=== PATIENT | female | born 1950 | race Two or more races ===

== ENCOUNTER 2019-03-16 06:26 | Day surgery (SDC) | payer BC, OTHER ==
--- NOTE | 2019-03-16 07:49 | PDANEPAE ---
ANE History of Present Illness EGD, US guided biopsy ANE Past Medical History - Cardiovascular History Hx Hypertension: No Hx Arrhythmias: No Hx Chest Pain: No Hx Coronary Artery / Peripheral Vascular Disease: No Hx CHF / Valvular Disease: No Hx Palpitations: No Cardiovascular History Comment: high chol - Pulmonary History Hx COPD: No Hx Asthma/Reactive Airway Disease: No Hx Recent Upper Respiratory Infection: No Hx Oxygen in Use at Home: No Hx Sleep Apnea: No Sleep Apnea Screening Result - Last Documented: Negative Pulmonary History Comment: recent PNA - Neurologic History Hx Cerebrovascular Accident: No Hx Seizures: No Hx Dementia: No - Endocrine History Hx Diabetes: No Hypothyroid: Yes Hyperthyroid: No Obesity: severe Endocrine History Comment: hypothyroidism - Renal History Hx Renal Disorders: Yes Renal History Comment: hx of left nephrectomy d/t ca. hx of partial right nephrectomy d/t ca - Liver History Hx Hepatic Disorders: No - Neurological & Psychiatric Hx Hx Neurological and Psychiatric Disorders: No - Cancer History Hx Cancer: Yes Cancer History Comment: kidney ca - Congenital Disorder History Hx Congenital Disorders: No - GI History GERD: no Hx Gastrointestinal Disorders: Yes Gastrointestinal History Comment: recent constipation - Other Health History Other Health History: wears glasses. lower partial plate. Anemia - Chronic Pain History Chronic Pain: No - Surgical History Prior Surgeries: 09/06/11 ventral hernia repair with Hernandez. 07/23/10 ventral hernia repair with Hernandez. 2004 partial right nephrectomy. 1997 left nephrectomy. hysterectomy. bridger JOHN Review of Systems Review of Systems: - Exercise capacity METS (RN): 4 METS ANE Patient History - Allergies Allergies/Adverse Reactions: No Known Allergies Allergy (Verified 03/15/19 17:33) - Home Medications Home Medications: Levothyroxine 03/15/19 [Last Taken Unknown] SIMVASTATIN HS 03/15/19 [Last Taken Unknown] - NPO status NPO Since - Liquids (Date): 03/15/19 NPO Since - Liquids (Time): 20:00 NPO Since - Solids (Date): 03/15/19 NPO Since - Solids (Time): 20:00 - Anes Hx Anes Hx: no prior problems - Smoking Hx Smoking Status: Never smoked Marijuana use: No - Alcohol Use Alcohol Use: None - Family Anes Hx Family Anes Hx: none Family Hx Anesthesia Complications: none ANE Labs/Vital Signs - Vital Signs Blood Pressure: 145/79 Heart Rate: 78 Respiratory Rate: 26 O2 Sat (%): 92 Height: 149.86 cm Weight: 93.894 kg ANE Physical Exam - Airway Neck exam: FROM Mallampati Score: Class 2 Mouth exam: normal dental/mouth exam (Upper front cap) - Pulmonary Pulmonary: clear to auscultation - Cardiovascular Cardiovascular: regular rate and rhythym - ASA Status ASA Status: III ANE Anesthesia Plan Anesthesia Plan: general endotracheal anesthesia
[2019-03-16] MEDS ORDERED: REMIFENTANIL HCL 1 MG VIAL ONE (07:52)
[2019-03-16] MEDS ORDERED: PROPOFOL 200 MG/20 ML VIAL ONE ×3 (07:52→09:15)
[2019-03-16] MEDS ORDERED: ROCURONIUM 50 MG/5 ML VIAL ONE (07:53)
[2019-03-16] MEDS ORDERED: DEXAMETHASONE 4 MG/ML VIAL ONE (07:53)
[2019-03-16] MEDS ORDERED: INDOMETHACIN 50 MG SUPP PR PRN (08:05)
--- NOTE | 2019-03-16 08:05 | PDGENHP ---
History & Physical Chief Complaint: abnl imaging History of Present Illness: 68 year old female presents for evaluation of abnormal imaging. She has a history of renal cell cancer and on imaging has a pancreatic mass. Pertinent Past, Social, Family History: PMHx: renal cell ca, hypothy. hypercholesterolemia. PSurghx: left nephrectomy, right partial nephr Relevant Physical Exam: HEENT: anicteric. CV: RRR +s1s2. Lungs: CTAB. Abd: soft, nt, + bs Cardiorespiratory Assessment: ASA 3
[2019-03-16] MEDS ORDERED: NS 500 ML IV SCH (08:15)
[2019-03-16] MEDS ORDERED: PHENYLEPHRINE HCL 100 MCG/ML SYR ONE (08:21)
[2019-03-16] MEDS ORDERED: ONDANSETRON 4 MG/2 ML VIAL ONE (08:41)
[2019-03-16] MEDS ORDERED: ePHEDrine SULFATE 25 MG/5 ML SYR ONE (09:01)
[2019-03-16] MEDS ORDERED: SUGAMMADEX SODIUM 200 MG/2 ML VIAL IVP ONE (09:22)
[2019-03-16] MEDS ORDERED: NALOXONE HCL 0.4 MG/ML INJ IVP PRN (09:38)
--- NOTE | 2019-03-16 09:49 | GIREPORT ---
[facility] Surgical Services - Endoscopy Department Patient Name: Aliyah Vyas Procedure Date: 03/16/2019 7:31 AM Patient Type: Outpatient Attending MD/ ER Physician: Robert Anne MD Procedure: Upper EUS Indications: Suspected mass in pancreas on CT scan Patient Profile: 68 year old female with a history of renal cell cancer presents for evaluation of a pancreatic mass seen on imaging. Providers: Robert Anne MD Medicines: General Anesthesia Complications: No immediate complications. Estimated blood loss: Minimal. Description of Procedure: After obtaining informed consent, the endoscope was passed under direct vision. Throughout the procedure, the patient's blood pressure, pulse, and oxygen saturations were monitored continuously. The Endoscope was intro duced through the mouth, and advanced to the second part of duodenum. The Endosonoscope was introduced through the mouth, and advanced to the sec ond part of duodenum. The esophagus, stomach, and duodenum were visualized endosonographically. The upper EUS was accomplished without difficulty. The patient tolerated the procedure well. Findings: ENDOSCOPIC FINDING: : The examined esophagus was normal. Localized nodular mucosa was found in the gastric antrum. Biopsies were taken with a cold forceps for histology. The examined duodenum was normal. ENDOSONOGRAPHIC FINDING: : There was no sign of significant endosonographic abnormality in the visualized portion of the liver. No masses were identified. There was no sign of significant endosonographic abnormality in the com mon bile duct. No lymphadenopathy seen. An irregular mass was identified in the pancreatic body. The mass was hypoechoic. The mass measured 38 mm by 40 mm in maximal cross-sectional diameter. The endosonographic borders were poorly-defined. There was sonographic evidence suggesting invasion into the splenic artery (manif ested by encasement). The mass was also very close to the celiac artery Fine needle aspiration for cytology was performed. Color Doppler imaging was utilized prior to needle puncture to confirm a lack of significant vasc ular structures within the needle path. One pass was made with the 25 gauge and another with a 19 gauge needle using a transgastric approach. A stylet was used. A science job titles was present and performed a preliminary cytologic examination. Fine needle biopsy was performed. Color Doppler imaging wa s utilized prior to needle puncture to confirm a lack of significant vasc ular structures within the needle path. Three passes were made with the 22 g auge ultrasound biopsy needle using a transgastric approach. A visible core of tissue was obtained. One pass was placed directyl into flow cytometry. Estimated Blood Loss: Estimated blood loss was minimal. Post Op Diagnosis: - Normal esophagus. - Nodular mucosa in the gastric antrum. Biopsied. - Normal examined duodenum. - There was no evidence of significant pathology in the visualized port ion of the liver. - There was no sign of significant pathology in the common bile duct. - A mass was identified in the pancreatic body. Mass abuts the splenic artery and also runs close to the celiac artery. Fine needle aspiration performed. Fine needle biopsy performed. Recommendation: - Discharge patient to home (with escort). - Clear liquid diet. - Continue present medications. - Await cytology results and await path results. - Thank you for allowing me to participate in the care of your patient. Attending Participation: I personally performed the entire procedure. Robert Anne MD Robert Anne MD 03/16/2019 9:48:20 AM This report has been signed electronicallyRobert Anne MD Number of Addenda: 0 Note Initiated On: 03/16/2019 7:31 AM Total Procedure Duration Time 1 hour 5 minutes 46 seconds [email or web address]
--- NOTE | 2019-03-16 10:24 | POSTANESTH ---
Post Anesthetic Evaluation Cardiovascular Status: Normal, Stable Respiratory Status: Normal, Stable Level of Consciousness/Mental Status: Can Participate in Eval Pain Control: Adequate, Prn Tx Ordered Nausea/Vomiting Control: Adequate, Prn Tx Ordered Complications Possibly Related to Anesthesia: None Noted
[2019-03-16 11:10] VITALS: BP 128/63
== END 2019-03-16 11:10 | disposition home or self-care (01) ==
LOC: FSGY 06:26
PROVIDERS: ATTEND Internal Medicine Gastroenterology
DX: C78.89 Secondary malignant neoplasm of other digestive organs (principal); Z85.528 Personal history of other malignant neoplasm of kidney; E03.9 Hypothyroidism, unspecified; E78.00 Pure hypercholesterolemia, unspecified; Z90.5 Acquired absence of kidney; K29.50 Unspecified chronic gastritis without bleeding; B96.81 Helicobacter pylori [H. pylori] as the cause of diseases classified elsewhere
CPT/HCPCS: 88184-90; 88185-91; J1100; J2370; J2405; J2704